=== PATIENT | female | born 1955 | race Caucasian/White ===

== ENCOUNTER 2021-07-28 13:46 | Emergency (ER) | payer BC ==
[2021-07-28] MEDS ORDERED: Sodium Chloride 0.9% 2.5 ML Syringe FLUSH PRN (13:47)
[2021-07-28] MEDS ORDERED: Sodium Chloride 0.9% 10 ML Syringe FLUSH PRN (13:47)
[2021-07-28 14:34] LABS: CARBON DIOXIDE,CO2 27.9 mmol/L (21.0-32.0); POTASSIUM,K 3.5 mmol/L (3.5-5.1)
== END 2021-07-28 16:40 | disposition home or self-care (01) ==
LOC: MW.ED 13:46
DX: M79.602 Pain in left arm (principal); K21.9 Gastro-esophageal reflux disease without esophagitis; I10 Essential (primary) hypertension; I25.2 Old myocardial infarction; Z79.899 Other long term (current) drug therapy
CPT/HCPCS: 36415; 71045; 80053; 84484; 85025; 85379; 85610; 93005; 99284; J3490; 93010